=== PATIENT | female | born 1960 | race Caucasian/White ===

== ENCOUNTER → 2019-07-19 | Outpatient (CLI) | payer OTHER ==
[~2019-07-19] MED LIST: ALLEGRA D 12 HO1 TER PO
--- NOTE | ~2019-07-19 | EKG ---
[place], [place] ELECTROCARDIOGRAM REPORT NAME: AVA KC UNIT #: [id number] ROOM: DOCTOR: EPIPHANY DRAFT REPORT BIRTHDATE: [birth year] [facility] Test Date: 2019-07-19 Test Time: 08:08:43 Pat Name: AVA KC Department: Room: Gender: F [employer]: CRA : [id number] Requested By: PHYSI NONSTAFF Order Number: [id number] Reading MD: Ze Mcdowell MD Measurements Intervals [place] Rate: 68 P: 22 WV: 144 QRS: 43 QRSD: 89 T: 32 QT: 398 QTc: 424 Interpretive Statements Sinus rhythm No previous ECG available for comparison Electronically Signed On 07-20-2019 15:39:59 PDT by Ze Mcdowell MD CM:EKGRPT:ELECTROCARDIOGRAM REPORT [id number] PHYSI NONSTAFF EPIPHANY DRAFT REPORT PHYSI NONSTAFF
[2019-07-19 08:28] LABS: BASO # 0.1 10*3/uL (0.0-0.1); EOS # 0.5 10*3/uL (0.0-0.4); EOS % 6.9 % (1.0-4.0); HEMATOCRIT 44.7 % (37.0-47.0); HEMOGLOBIN 14.5 g/dl (12.0-16.0); LYMPH # 2.2 10*3/uL (1.3-4.4); LYMPH % 32.8 % (27.0-41.0); MEAN CELL VOLUME 85.8 fl (81.0-99.0); MEAN CORPUSCULAR HGB 27.8 pg (27.0-31.0); MEAN CORPUSCULAR HGB CONC 32.4 g/dl (33.0-37.0); MEAN PLATELET VOLUME 9.8 fl (9.6-12.3); MONO # 0.8 10*3/uL (0.1-1.0); NEUT # 3.2 10*3/uL (2.3-7.9); PLATELET COUNT AUTOMATED 330 10*3/uL (130-400); RED BLOOD COUNT 5.21 10*6/uL (4.10-5.10); RED CELL DISTRI WIDTH 13.2 % (0-14.5); WHITE BLOOD COUNT 6.8 10*3/uL (4.8-10.8)
[2019-07-19 08:54] LABS: BUN 19 mg/dl (7-24); CHLORIDE 106 mmol/L (98-107); CREATININE 0.85 mg/dL (0.55-1.02); SODIUM 137 mmol/L (136-145)
== END | disposition home or self-care (01) ==
LOC: LAB 07:48
PROVIDERS: Obstetrics & Gynecology Female Pelvic Medicine and Reconstructive Surgery
DX: Z01.818 Encounter for other preprocedural examination (principal); N39.3 Stress incontinence (female) (male); Z79.899 Other long term (current) drug therapy; N81.3 Complete uterovaginal prolapse

== ENCOUNTER → 2023-04-18 | Day surgery (SDC) | payer BC ==
[~2023-04-18] VITALS: Ht 149.8 cm; Wt 77.1 kg
[~2023-04-18] MED LIST changes: +CLARITIN10 MG PO
[2023-04-18 09:30] VITALS: BP 126/70
[2023-04-18 09:56] VITALS: BP 89/46
[2023-04-18 10:11] VITALS: BP 99/57
[2023-04-18 10:26] VITALS: BP 121/72
== END ==
LOC: SDC 04-15 08:00
PROVIDERS: ATTEND Surgery
DX: Z12.11 Encounter for screening for malignant neoplasm of colon (principal); K57.90 Diverticulosis of intestine, part unspecified, without perforation or abscess without bleeding; E11.9 Type 2 diabetes mellitus without complications; J45.909 Unspecified asthma, uncomplicated; Z98.890 Other specified postprocedural states

== ENCOUNTER → 2023-05-09 | Outpatient (CLI) | payer BC | END | disposition home or self-care (01) | LOC: MAMMO 09:28 | PROVIDERS: ATTEND Nurse Practitioner | DX: Z12.31 Encounter for screening mammogram for malignant neoplasm of breast (principal); Z91.89 Other specified personal risk factors, not elsewhere classified; M85.851 Other specified disorders of bone density and structure, right thigh ==

== ENCOUNTER → 2024-06-26 | Outpatient (CLI) | payer BC | END | disposition home or self-care (01) | LOC: MAMMO 15:43 | PROVIDERS: ATTEND Nurse Practitioner | DX: Z12.31 Encounter for screening mammogram for malignant neoplasm of breast (principal) ==